=== PATIENT | male | born 1985 | race Two or more races ===

== ENCOUNTER 2017-05-11 17:32 | Emergency (ER) | payer BC, OTHER ==
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
[2017-05-11 23:34] VITALS: BP 118/68
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
== END 2017-05-11 20:38 | disposition home or self-care (01) ==
LOC: MW.ED 17:32
DX: S09.90XA Unspecified injury of head, initial encounter (principal); M54.2 Cervicalgia; M54.5 Low back pain; F32.9 Major depressive disorder, single episode, unspecified; Z87.891 Personal history of nicotine dependence; Y04.0XXA Assault by unarmed brawl or fight, initial encounter; Y99.0 Civilian activity done for income or pay
CPT/HCPCS: 70450; 70450-26; 70486; 70486-26; 72040; 72040-26; 72100; 72100-26; 99283; 99284-25